=== PATIENT | female | born 1945 | race Caucasian/White ===

== ENCOUNTER 2016-09-09 09:50 | Emergency (ER) | payer OTHER, MEDICARE ==
[2016-09-09] MEDS ORDERED: SODIUM CHLORIDE 0.9% 1,000 ML ONE (11:43)
[2016-09-09] MEDS ORDERED: METHYLPRED SOD SUCC 125 MG/2 ML VIAL ONE (11:43)
[2016-09-09] MEDS ORDERED: AZITHROMYCIN 250 MG TAB ONE (11:43)
[2016-09-09] MEDS ORDERED: DUONEB INH ONE (11:47)
[2016-09-09] MEDS ORDERED: ACETAMINOPHEN 325 MG TAB ONE (12:13)
[2016-09-09] MEDS ORDERED: SODIUM CHLORIDE 0.9% 100 ML IV ONE (13:17)
[2016-09-09] MEDS ORDERED: CEFTRIAXONE 1 GM VIAL ONE (13:17)
== END 2016-09-09 13:54 | disposition home or self-care (01) ==
LOC: ER 09:50
DX: J44.0 Chronic obstructive pulmonary disease with (acute) lower respiratory infection (principal); J20.9 Acute bronchitis, unspecified; J44.1 Chronic obstructive pulmonary disease with (acute) exacerbation; R50.9 Fever, unspecified; E86.0 Dehydration; Z79.51 Long term (current) use of inhaled steroids; F17.200 Nicotine dependence, unspecified, uncomplicated
CPT/HCPCS: 36415; 71010; 80053; 82553; 83880; 84484; 85025; 87804; 93005; 94640; 96361; 96365